=== PATIENT | female | born 1985 | race Native Hawaiian/Other Pacific Islander ===

== ENCOUNTER 2019-01-07 19:52 | Emergency (ER) | payer OTHER ==
[~2019-01-07] VITALS: Ht 154.9 cm; Wt 45.4 kg
[2019-01-07 20:00] VITALS: BP 138/81; TEMP 98.1
== END 2019-01-07 20:23 | disposition home or self-care (01) ==
LOC: ED 19:52
DX: J40 Bronchitis, not specified as acute or chronic (principal); F17.210 Nicotine dependence, cigarettes, uncomplicated
CPT/HCPCS: 99281

== ENCOUNTER 2019-05-26 11:48 | Emergency (ER) | payer OTHER ==
[~2019-05-26] VITALS: Ht 154.9 cm; Wt 45.4 kg
[2019-05-26 11:57] VITALS: TEMP 98.6
[2019-05-26 12:28] LABS: PLATELET COUNT 330 K/uL (152-353)
[2019-05-26 12:52] LABS: POTASSIUM 3.3 mmol/L (3.6-5.2); SODIUM 138 mmol/L (136-145)
[2019-05-26 13:12] VITALS: BP 110/74
== END 2019-05-26 13:12 | disposition home or self-care (01) ==
LOC: ED 11:48
PROVIDERS: Emergency Medicine
DX: R07.89 Other chest pain (principal)
CPT/HCPCS: 80053; 82550; 84484; 85027; 93005; 99283

== ENCOUNTER 2021-10-10 12:25 | Outpatient (CLI) | payer OTHER ==
[2021-10-10] VITALS (9 sets, daily range): BP systolic 91–124; BP diastolic 42–60; TEMP 97.05–988.3
== END 2021-10-10 19:27 | disposition home or self-care (01) ==
LOC: INF 12:25
PROVIDERS: ATTEND Internal Medicine
PROC: 30233N1 Transfusion of Nonautologous Red Blood Cells into Peripheral Vein, Percutaneous Approach (ICD-10-PCS; principal; 2021-10-10)
DX: D64.89 Other specified anemias (principal)
CPT/HCPCS: 36430; 85014; 85018; 86850; 86900; 86901; 86922; P9016